=== PATIENT | male | born 1930 | race Caucasian/White ===

== ENCOUNTER 2019-10-18 15:47 | Inpatient (IN) | payer MEDICARE, OTHER ==
[~2019-10-18] VITALS: Ht 172.7 cm; Wt 71.7 kg
[~2019-10-18 15:47] MED LIST: ALPR1TAB2 PO; ASPI-1169 PO; FENO48TA6 PO; FINA5TAB3 PO; GABA-534 PO; HYDR12.55 PO; LISI10TA5 PO; METF-442 PO; METO25TA6 PO; OMEP40CA13 PO; SIMV-49 PO
[2019-10-18] MEDS ORDERED: TAMS-12 PO (16:01)
[2019-10-18] MEDS ORDERED: GABA600T12 PO (16:01)
--- NOTE | 2019-10-18 16:07 | NUR ---
med recon nurse pt used to take metoprolol tartrate 25mg po bid, but he stopped it 2 weeks ago as stated.
[2019-10-18 16:13] LABS: BASOPHILS # (AUTO) 0.1 /CMM (0.0-0.2); BASOPHILS % (AUTO) 1.5 % (0.0-2.0); EOSINOPHILS % (AUTO) 5.6 % (0.0-6.0); HEMATOCRIT 41 % (39-51); HEMOGLOBIN 13.9 g/dL (13.5-17.5); LYMPHOCYTES # (AUTO) 1.6 /CMM (0.8-4.8); LYMPHOCYTES % (AUTO) 19.7 % (20.0-44.0); MEAN CORPUSCULAR HGB CONC 34 g/dl (31.0-36.0); MEAN CORPUSCULAR VOLUME 92 fL (80-96); MONOCYTES # (AUTO) 0.6 /CMM (0.1-1.30); MONOCYTES % (AUTO) 7.7 % (2.0-12.0); NEUTROPHILS # (AUTO) 5.4 /CMM (1.8-8.9); NEUTROPHILS % (AUTO) 65.5 % (43.0-81.0); PLATELET COUNT (AUTO) 204 /CMM (150-450); RED BLOOD CELL COUNT(AUTO) 4.49 MIL/uL (4.5-6.0); WHITE BLOOD COUNT (AUTO) 8.2 K/uL (4.3-11.0)
--- NOTE | 2019-10-18 16:20 | NUR ---
PT BIB FRIEND C/O CHRONIC SOB FOR THE LAST 4 YEARS WHICH HAS BEEN WORSE X2 WEEKS. PT REPORTS IT IS INTERFERING WITH HIS DAILY LIFE. RESP APPEARS EVEN UNLABORED BUT PT REPORTS DYSPNEA. A/OX4. AMBULATORY WITH STEADY GAIT. NAD NOTED. IN ER BED 08.
--- NOTE | 2019-10-18 16:22 | NUR ---
2ND EKG ORDER CANCELLED; 1ST ORDER WAS ENTERED PER PROTOCOL; NO INDICATION FOR 2 EKGS.
[2019-10-18 16:38] LABS: CARBON DIOXIDE 22 mmol/L (21-32); CHLORIDE 101 mmol/L (98-107); CREATININE 1.5 mg/dL (0.6-1.3); GLUCOSE 270 mg/dL (74-106); POTASSIUM 5.1 mmol/L (3.5-5.1); SODIUM SERUM 137 mmol/L (136-145); UREA NITROGEN, BLOOD 21 mg/dL (7-18)
[2019-10-18 16:50] LABS: ALANINE AMINOTRANSFERASE 21 U/L (12-78); ALKALINE PHOSPHATASE 107 U/L (46-116); ASPARTATE AMINOTRANSFERASE 14 U/L (15-37); B-TYPE NATRIURETIC PEPTIDE 318 PG/ML (0-125); BILIRUBIN,DIRECT 0.1 mg/dL (0.0-0.2); BILIRUBIN,TOTAL 0.3 mg/dL (0.2-1.0); TOTAL PROTEIN, SERUM 6.6 g/dL (6.4-8.2)
[2019-10-18] MEDS ORDERED: IV NS 0.9% 1,000 ML IV ONE (18:00)
--- NOTE | 2019-10-18 19:14 | NUR ---
REPORT GIVEN TO MING TYSON FOR MEI. PROVIDED WITH SANDWICH PER PT REQUEST. NAD NOTED.
--- NOTE | 2019-10-18 19:15 | NUR ---
REPORT RECEIVED FROM ASHLEY TYSON, FOR MEI
[2019-10-18] MEDS ORDERED: IV NS 0.9% 500 ML BAG IV ONE (20:00)
--- NOTE | 2019-10-18 20:35 | NUR ---
GENERAL LABORER NOTES PATIENT ARRIVED TO THE UNIT AT 2034, VIA ACLS PROTOCOL. PATIENT ALERT AND ORIENTED X4. ON NASAL CANNULA, 2L WITH EVEN NON-LABORED BREATHING. ON CREDIT HISTORIAN, SINUS RHYTHM WITH FIRST DEGREE BLOCK. PATIENT SKIN DRY AND INTACT. IV ACCESS INTACT AND PATENT. SAFETY PRECAUTIONS IMPLEMENTED WITH BED IN THE LOWEST POSITION, BED LOCKED, BED ALARM ON, BILATERAL SIDE RAILS UP, AND CALL LIGHT WITHIN EASY REACH OF THE PATIENT. WILL CONTINUE TO MONITOR PATIENT.
--- NOTE | 2019-10-18 20:56 | NUR ---
PT TRANSFERRED TO [facility] IN STABLE CONDITION VIA ACLS PROTOCOL
[2019-10-18 20:57] VITALS: BP 151/93
[2019-10-18] MEDS ORDERED: VALSARTAN 80 MG TABLET PO SCH (21:00)
[2019-10-18] MEDS ORDERED: ACETAMINOPHEN 325 MG TABLET PO PRN (21:00)
[2019-10-18] MEDS ORDERED: DEXTROSE 50%-WATER 50 ML DISP.SYRIN IV PRN (21:00)
[2019-10-18] MEDS ORDERED: ONDANSETRON HCL/PF 4 MG/2 ML VIAL IVP PRN (21:00)
[2019-10-18] MEDS ORDERED: Z GUARD REMEDY 2 OZ OINT TP PRN (21:00)
[2019-10-18] MEDS ORDERED: METFORMIN 500 MG TABLET PO SCH (21:00)
[2019-10-18] MEDS: ASPIRIN 81 MG TAB.CHEW PO SCH (22:09)
[2019-10-18] MEDS: GABAPENTIN 300 MG CAPSULE PO SCH (22:09)
[2019-10-18] MEDS: TAMSULOSIN 0.4 MG CAP.SR.24H PO SCH (22:09)
[2019-10-18] MEDS: LINAGLIPTIN 5 MG TABLET PO SCH (22:10)
[2019-10-18] MEDS: SIMVASTATIN 20 MG TABLET PO SCH (22:10)
[2019-10-18] MEDS: MAGNESIUM OXIDE 400 MG TABLET PO SCH (22:10)
[2019-10-18] MEDS: BLOOD SUGAR DIAGNOSTIC 1 EACH STRIP IN SCH (22:10)
[2019-10-18] MEDS: INSULIN REGULAR, HUMAN 100 UNIT/ML 3 ML VIAL SQ PRN (22:39)
--- NOTE | 2019-10-18 22:39 | NUR ---
STONE BANKER NOTES PATIENT BLOOD SUGAR 236, PER SLIDING SCALE PROTOCOL, 4 UNITS OF INSULIN ADMINISTERED. SNACK AND JUICE PROVIDED TO PATIENT. WILL CONTINUE TO MONITOR PATIENT.
[2019-10-18 23:38] VITALS: BP 151/93
[2019-10-19] VITALS: BP 157/76
--- NOTE | 2019-10-19 00:01 | NUR ---
INSTRUCTIONAL MEDIA SERVICES TECHNICIAN NOTES PER DR. KALYANI GRIFFIN ORDERED TO WALK 6 MINUTES WITH RT. ON ROOM AIR, PATIENT START TIME 2354 WITH 96% SPO2 SATURATION HEART RATE 80. END TIME 0000 SPO2 SATURATION 94% HEART RATE 79. PATIENT RETURN TO BED, WILL CONTINUE TO MONITOR.
[2019-10-19 03:56] LABS: BASOPHILS # (AUTO) 0.1 /CMM (0.0-0.2); BASOPHILS % (AUTO) 0.8 % (0.0-2.0); EOSINOPHILS % (AUTO) 9.7 % (0.0-6.0); HEMATOCRIT 40 % (39-51); HEMOGLOBIN 13.3 g/dL (13.5-17.5); LYMPHOCYTES # (AUTO) 1.6 /CMM (0.8-4.8); MEAN CORPUSCULAR HGB CONC 33 g/dl (31.0-36.0); MEAN CORPUSCULAR VOLUME 92 fL (80-96); MONOCYTES # (AUTO) 0.6 /CMM (0.1-1.30); MONOCYTES % (AUTO) 10.8 % (2.0-12.0); NEUTROPHILS # (AUTO) 3.1 /CMM (1.8-8.9); NEUTROPHILS % (AUTO) 51.7 % (43.0-81.0); PLATELET COUNT (AUTO) 170 /CMM (150-450); RED BLOOD CELL COUNT(AUTO) 4.33 MIL/uL (4.5-6.0); WHITE BLOOD COUNT (AUTO) 5.9 K/uL (4.3-11.0)
[2019-10-19 04:11] LABS: ALANINE AMINOTRANSFERASE 18 U/L (12-78); ALBUMIN 3.4 g/dL (3.4-5.0); ALKALINE PHOSPHATASE 80 U/L (46-116); ASPARTATE AMINOTRANSFERASE 14 U/L (15-37); BILIRUBIN,TOTAL 0.4 mg/dL (0.2-1.0); CALCIUM, SERUM 8.7 mg/dL (8.5-10.1); CARBON DIOXIDE 29 mmol/L (21-32); CHLORIDE 107 mmol/L (98-107); CREATININE 1.3 mg/dL (0.6-1.3); GLUCOSE 116 mg/dL (74-106); IRON, SERUM 86 ug/dl (50-175); MAGNESIUM 1.7 mg/dL (1.8-2.4); PHOSPHORUS 5.1 mg/dL (2.5-4.9); POTASSIUM 4.9 mmol/L (3.5-5.1); SODIUM SERUM 142 mmol/L (136-145); TOTAL IRON BINDING CAPACITY 265 ug/dl (250-450); UREA NITROGEN, BLOOD 18 mg/dL (7-18)
[2019-10-19 04:19] LABS: CHOLESTEROL 117 mg/dL (<200); HDL CHOLESTEROL 31 mg/dL (40-60); LDL 54 mg/dL (0-99); THYROID STIMULATING HORMONE 2.971 uIU/mL (0.358-3.74); TRIGLYCERIDES 210 mg/dL (30-150)
[2019-10-19] MEDS: BLOOD SUGAR DIAGNOSTIC 1 EACH STRIP IN SCH ×4 (06:56→21:52)
[2019-10-19] MEDS: INSULIN REGULAR, HUMAN 100 UNIT/ML 3 ML VIAL SQ PRN ×4 (06:58→21:52)
--- NOTE | 2019-10-19 07:05 | NUR ---
EXCAVATING CONTRACTOR NOTES PATIENT'S BLOOD SUGAR 158, PER SLIDING SCALE PROTOCOL, 2 UNITS OF INSULIN ADMINISTERED. PROVIDED JUICE AND SNACK TO PATIENT. WILL CONTINUE TO MONITOR PATIENT.
--- NOTE | 2019-10-19 07:15 | NUR ---
BARREL RIFLER OPERATOR NOTES PATIENT IN BED SLEEPING, EASILY AWAKEN BY NAME AND LIGHT TOUCH. ALERT AND ORIENTED X 4. PATIENT PRESENT EVEN NON-LABORED BREATHING. ON SIGN ARTIST, NORMAL SINUS RHYTHM WITH FIRST DEGREE BLOCK IN 70'S. PATIENT ON ROOM AIR AT THIS TIME. PATIENT IV ACCESS INTACT AND PATENT, SL ON RIGHT HAND 20G. PATIENT SKIN KEPT CLEAN AND DRY. SAFETY PRECAUTIONS IMPLEMENTED WITH BED IN THE LOWEST POSITION, BED ALARM ON, BED LOCKED, BILATERAL SIDE RAILS UP, AND CALL LIGHT WITHIN EASY REACH OF THE PATIENT. WILL ENDORSE MEI TO UPCOMING DAYSHIFT NURSE.
--- NOTE | 2019-10-19 07:20 | NUR ---
ms rn received on bed, awake,alert,oriented x4,not in any form of distress, respirations even and unlabored,no sob noted. lungs are clear,abdomen soft,positive bowel sounds,denies pain at this time,all needs attended.
[2019-10-19 08:00] VITALS: BP 140/82
--- NOTE | 2019-10-19 09:00 | NUR ---
ms faraz was seen by sadie santos/ orders made and carried out.
--- NOTE | 2019-10-19 09:00 | NUR ---
ms ruth breakfast served,due meds given,tolerated well.
[2019-10-19] MEDS: GABAPENTIN 300 MG CAPSULE PO SCH ×2 (10:17→17:52)
[2019-10-19] MEDS: ASPIRIN 81 MG TAB.CHEW PO SCH (10:17)
[2019-10-19] MEDS: PANTOPRAZOLE 40 MG TABLET.DR PO SCH (10:17)
[2019-10-19] MEDS: VALSARTAN 80 MG TABLET PO SCH (10:18)
[2019-10-19] MEDS: Magnesium 1GM/D5W 100ML PREMIX 100 ML IV SCH ×2 (10:19→12:34)
[2019-10-19] MEDS ORDERED: NITROGLYCERIN 0.4 MG/TAB BOTTLE SL ONE (10:30)
[2019-10-19] MEDS ORDERED: METOPROLOL TARTRATE INJ 5 MG/5 ML AMPUL IVP PRN (10:30)
[2019-10-19] MEDS ORDERED: IV NS 0.9% 500 ML IV PRN (10:30)
[2019-10-19] MEDS ORDERED: IOHEXOL-350 100 ML VIAL IV ONE (10:46)
[2019-10-19] MEDS ORDERED: IV NS 0.9% 250 ML IV ONE (10:46)
[2019-10-19] MEDS ORDERED: NITROGLYCERIN 0.4 MG/TAB BOTTLE ONE (10:47)
[2019-10-19] MEDS ORDERED: METOPROLOL TARTRATE INJ 5 MG/5 ML AMPUL ONE (10:47)
--- NOTE | 2019-10-19 11:29 | NUR ---
CTA heart completed; Given Metoprolol 5 mg IVP x1 and NTG 0.4 mg SL x1. Tolerated procedure, denies CP, SOB, VSS; latest VS BP108/70; HR 54 SPO2 97% on room air; transported back to floor via wheelchair ; handoff report given to Mariah TYSON
--- NOTE | 2019-10-19 12:00 | NUR ---
ms rn was seen by yogi myers/ orders made and carried out.
--- NOTE | 2019-10-19 13:30 | NUR ---
ms rn patient came back from ct angio,no distress noted.
[2019-10-19 16:00] VITALS: BP 149/87
--- NOTE | 2019-10-19 17:25 | NUR ---
ms rn on bed, all needs attended.
--- NOTE | 2019-10-19 18:17 | NUR ---
ms rn on bed,no distress noted.
[2019-10-19 20:00] VITALS: BP 118/64
--- NOTE | 2019-10-19 21:00 | NUR ---
TELE/RN NOTES: PATIENT INSISTED ON HAVING AN LINE. PER PATIENT "I CALLED KALYANI GRIFFIN, AND HE SAID YOU CAN TAKE OUT THE IV". EXPLAINED TO PATIENT ABOUT RISKS AND BENEFITS OF HAVING AN IV LINE X3. STILL PREFERS TO HAVE THE LINE REMOVED. IV LINE ON THE RIGHT AC REMOVED, APPLIED GAUZE WITH TAPE TO PREVENT BLEEDING. NO S/S OF INFILTRATION NOTED. PATIENT NEEDS MET AND RENDERED AT THIS TIME. WILL CONTINUE TO MONITOR ACCORDINGLY.
[2019-10-19] MEDS: LINAGLIPTIN 5 MG TABLET PO SCH (21:44)
[2019-10-19] MEDS: TAMSULOSIN 0.4 MG CAP.SR.24H PO SCH (21:44)
[2019-10-19] MEDS: MAGNESIUM OXIDE 400 MG TABLET PO SCH (21:45)
[2019-10-19] MEDS: SIMVASTATIN 20 MG TABLET PO SCH (21:45)
--- NOTE | 2019-10-19 22:21 | NUR ---
TELE/RN NOTES: BLOOD SUGAR LEVEL OF 105. NO INSULIN GIVEN PER SLIDING SCALE. PATIENT IS STABLE. WILL CONTINUE MONITORING ACCORDINGLY.
[2019-10-20 00:01] VITALS: BP 134/70
[2019-10-20 04:11] VITALS: BP 127/78
[2019-10-20 06:28] LABS: BASOPHILS # (AUTO) 0.1 /CMM (0.0-0.2); BASOPHILS % (AUTO) 0.8 % (0.0-2.0); EOSINOPHILS % (AUTO) 7.1 % (0.0-6.0); HEMATOCRIT 41 % (39-51); HEMOGLOBIN 13.8 g/dL (13.5-17.5); LYMPHOCYTES # (AUTO) 1.4 /CMM (0.8-4.8); MEAN CORPUSCULAR HGB CONC 34 g/dl (31.0-36.0); MEAN CORPUSCULAR VOLUME 91 fL (80-96); MONOCYTES # (AUTO) 0.7 /CMM (0.1-1.30); MONOCYTES % (AUTO) 10.4 % (2.0-12.0); NEUTROPHILS % (AUTO) 60.7 % (43.0-81.0); PLATELET COUNT (AUTO) 158 /CMM (150-450); WHITE BLOOD COUNT (AUTO) 6.6 K/uL (4.3-11.0)
[2019-10-20] MEDS: BLOOD SUGAR DIAGNOSTIC 1 EACH STRIP IN SCH ×2 (06:32→12:13)
[2019-10-20] MEDS: INSULIN REGULAR, HUMAN 100 UNIT/ML 3 ML VIAL SQ PRN ×2 (06:35→12:14)
--- NOTE | 2019-10-20 06:45 | NUR ---
TELE/RN CLOSING NOTES: PATIENT IN BED SLEEPING, EASILY AWAKEN BY NAME AND LIGHT TOUCH. REMAINS A/OX 4. HAS NON-LABORED BREATHING. NO SOB NOTED. ON HOSPITAL WARD CLERK, NORMAL SINUS RHYTHM WITH FIRST DEGREE BLOCK IN 70'S. PATIENT ON ROOM AIR AT THIS TIME. ALL DUE MEDS GIVEN ORDERED. ALL NEEDS MET AND RENDERED. NO IV ACCESS NOTED, BLOOD SUGAR CHECK OF 198. 3UNITS GIVEN PER SLIDING SCALE. SAFETY PRECAUTIONS IMPLEMENTED WITH BED IN THE LOWEST POSITION, BED ALARM ON, BED LOCKED, BILATERAL SIDE RAILS UP, AND CALL LIGHT WITHIN EASY REACH OF THE PATIENT. WILL TO UPCOMING DAYSHIFT NURSE FOR MEI.
[2019-10-20 07:02] LABS: ALBUMIN 3.3 g/dL (3.4-5.0); BILIRUBIN,TOTAL 0.4 mg/dL (0.2-1.0); CALCIUM, SERUM 8.8 mg/dL (8.5-10.1); CREATININE 1.1 mg/dL (0.6-1.3); MAGNESIUM 1.8 mg/dL (1.8-2.4); PHOSPHORUS 4.1 mg/dL (2.5-4.9); POTASSIUM 4.1 mmol/L (3.5-5.1); TOTAL PROTEIN, SERUM 6.1 g/dL (6.4-8.2)
[2019-10-20 08:00] VITALS: BP 97/56
--- NOTE | 2019-10-20 08:00 | NUR ---
DELI SLICER OPENING NOTES Received Patient asleep and resting in bed. A/O x 4. VS stable with no acute distress. Breathing even and unlabored on room air with no respiratory distress. No signs and symptoms of pain. Telemonitor in place and patent reading SR with HR-81. No IV access noted. MD aware. Safety precautions in place. Bed locked and set to lowest position with side rails x 2 up. All needs rendered at this time. Call light within reach. Will continue to monitor.
[2019-10-20 09:00] VITALS: BP 97/56
[2019-10-20] MEDS: VALSARTAN 80 MG TABLET PO SCH (09:00)
[2019-10-20] MEDS: ASPIRIN 81 MG TAB.CHEW PO SCH (09:39)
[2019-10-20] MEDS: GABAPENTIN 300 MG CAPSULE PO SCH (09:39)
[2019-10-20] MEDS: PANTOPRAZOLE 40 MG TABLET.DR PO SCH (09:39)
--- NOTE | 2019-10-20 10:36 | NUR ---
MS RN NOTES Patient seen by Rafal GATICA. Per , D/C telemetry. Patient in stable condition. Will continue to monitor.
--- NOTE | 2019-10-20 11:03 | NUR ---
MS RN NOTES Patient ambulated around unit. Lowest SPO2 was 92% on RA. Notified Rolando LEESO at this time. Patient in stable condition. Call light within reach. Will continue to monitor.
[2019-10-20] MEDS ORDERED: VALS80TA2 PO (11:53)
--- NOTE | 2019-10-20 13:50 | NUR ---
MS BOOKBINDER CHIEF NOTES Patient discharged for home at this time. Patient in stable condition. VS stable with no acute distress. Breathing even and unlabored on room air with no respiratory distress. Denies pain. No signs and symptoms of pain. Patient refused skin assessment photos, otherwise skin clean and intact. Medication reconciliation and discharge orders reviewed and explained to Patient. Patient verbalized understanding. Patient will follow up with PCP in 1 week. All belongings with Patient. Escorted Patient to Lobby for safety. Patient picked up by Chin Bautista DNP, friend.
[2019-10-21] MEDS ORDERED: CAND16TA25 PO (18:11)
[2019-10-21] MEDS ORDERED: SITA100T PO (18:11)
== END 2019-10-20 13:50 | disposition home or self-care (01) | DRG 189 ==
LOC: ER 15:50 → TELE 20:21 → MED 10-20 08:41
PROVIDERS: ADMIT Nurse Practitioner Acute Care; ATTEND Nurse Practitioner Acute Care
DX: J96.01 Acute respiratory failure with hypoxia (principal); N17.0 Acute kidney failure with tubular necrosis; I25.10 Atherosclerotic heart disease of native coronary artery without angina pectoris; E11.65 Type 2 diabetes mellitus with hyperglycemia; M81.0 Age-related osteoporosis without current pathological fracture; E83.42 Hypomagnesemia; E78.5 Hyperlipidemia, unspecified; Z79.82 Long term (current) use of aspirin; Z87.891 Personal history of nicotine dependence; Z86.73 Personal history of transient ischemic attack (TIA), and cerebral infarction without residual deficits; N40.0 Benign prostatic hyperplasia without lower urinary tract symptoms; I10 Essential (primary) hypertension; G89.29 Other chronic pain; Z95.1 Presence of aortocoronary bypass graft; Z85.810 Personal history of malignant neoplasm of tongue; I35.0 Nonrheumatic aortic (valve) stenosis; Z79.84 Long term (current) use of oral hypoglycemic drugs; K13.21 Leukoplakia of oral mucosa, including tongue; E11.42 Type 2 diabetes mellitus with diabetic polyneuropathy; M15.1 Heberden's nodes (with arthropathy); Z91.81 History of falling
CPT/HCPCS: 36415; 70487-TC; 70491-TC; 71045-TC; 71250-TC; 72170-TC; 73030-TC; 73130-TC; 75574; 80048-TC; 80053-TC; 80061-TC; 80076-TC; 82962-TC; 83540-TC; 83735-TC; 83880; 84100-TC; 84443-TC; 84484-TC; 85025-TC; 85652-TC; 85730-TC; 87081-TC; 93307-TC; G0378; J1815; J3475; J3490; J7030; J7040; J7050; Q9967